=== PATIENT | male | born 1990 ===

== ENCOUNTER 2024-05-17 11:57 | Outpatient (AMB) | payer OTHER, SELFPAY ==
[2024-05-17 12:45] VITALS: BP 114/80; PULSE 79; O2SAT 95; BMI 30.1
--- NOTE | 2024-05-17 12:45 | AM.OFFWIN_ITS ---
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 While every effort has been made to ensure accuracy, air export agent errors may have been included. The patient is a 33 year old man who presents to the clinic today with mid lower back pain radiating bilaterally. He notes that today he was lifting a box, when he felt pain in his lower back sharp in nature. He put the box down. He denies any loss of control of bladder or bowel, any pop sensation, any numbness or tingling, any inability to move. He took some Tylenol, and presented to be seen. He has not had any previous back injury, however has strained other muscles and has taken muscle relaxers in the past. He finds that bending over helps improve the pain. [facility] Social History Patient Tobacco Use Status: Never used Tobacco Review of Systems Const All systems reviewed & are unremarkable except as noted in HPI and below Physical Exam Vital Signs: Last Vital Signs Pulse 79 05/17/24 12:45 BP 114/80 05/17/24 12:45 Pulse Ox 95 05/17/24 12:45 Oxygen Delivery Method Room Air 05/17/24 12:45 BMI result Body Mass Index 30.1 Const General: cooperative, healthy appearing, comfortable, no acute distress and well developed Orientation/consciousness: patient oriented x3 Limitations: no limitations Resp Effort & Inspection: normal respiratory effort and able to speak in complete sentences Back/Spine/Pelvis Other: Lumbar paraspinal muscle tenderness, full range of motion, negative SLR, negative well SLR. Distal neurovascular exam intact, strength 5/5, equal b ilaterally. Skin General skin exam: no rashes or lesions noted Neuro General: patient oriented x3 Extrem General: Yes normal to inspection Assessment & Plan Assessment & Plan (1) Lumbago: Code(s): M54.50 - Low back pain, unspecified Qualifiers: Chronicity: acute Back pain laterality: bilateral Sciatica presence: without sciatica Qualified Code(s): M54.50 - Low back pain, unspecified Plan: Advised NSAIDs, ice/transitioned to heat after 3 days. Trial muscle relaxers for symptomatic management. Advised patient to follow up as needed with worsening or failure to resolve. Advised avoidance heavy lifting for the next few days. Offered note for work, which he declined as he works for the . Plan See above for full details and plan. Medications: New cyclobenzaprine 1 to 2 orally 3 times a day PRN; 10 tabs 0RF muscle spasm Coding Level of Care Code New Pt Level 3 (67014) Diagnoses Acute bilateral low back pain without sciatica M54.50 Chronicity: acute Back pain laterality: bilateral Sciatica presence: without sciatica
== END 2024-05-17 13:39 | disposition home or self-care (01) ==
PROVIDERS: Visit Provider Registered Nurse
DX: M54.50 Low back pain, unspecified (principal)

== ENCOUNTER → 2024-05-17 11:57 | Outpatient (BNVA) | payer OTHER, SELFPAY | PROVIDERS: Visit Provider Registered Nurse | DX: M54.50 Low back pain, unspecified (principal) | CPT/HCPCS: 99202 ==